=== PATIENT | female | born 1990 | race African-American/Black ===

== ENCOUNTER 2021-07-27 22:32 | Emergency (ER) | payer OTHER ==
[2021-07-27] MEDS ORDERED: Acetaminophen 500 MG TAB ONE (22:55)
[2021-07-28 15:37] LABS: SARS-CoV-2 PCR by NAA DETECTED (NotDetected)
== END 2021-07-27 23:23 | disposition home or self-care (01) ==
LOC: CSHERS 22:32
DX: U07.1 COVID-19 (principal); I10 Essential (primary) hypertension
CPT/HCPCS: 71045; 87804; U0003; U0005

== ENCOUNTER 2022-05-07 13:19 | Emergency (ER) | payer OTHER ==
[2022-05-07] MEDS ORDERED: Bacitracin 1 PK ONE (14:11)
== END 2022-05-07 14:13 | disposition home or self-care (01) ==
LOC: CSHERS 13:19
DX: L03.012 Cellulitis of left finger (principal); L02.512 Cutaneous abscess of left hand; I10 Essential (primary) hypertension
CPT/HCPCS: 26010